=== PATIENT | female | born 1995 | race Two or more races ===

== ENCOUNTER 2017-09-21 18:06 | Emergency (ER) | payer MEDICAID, OTHER ==
--- NOTE | 2017-09-21 18:50 | EDPHY ---
H & P HPI/ROS: CHIEF COMPLAINT: Pain to left trapezius 40 hr ago HISTORY OF PRESENT ILLNESS: 22-year-old female sustained injury left shoulder while at work. She was attempting to do a lift with someone else. Unfortunately the client started tipping and she had quick get under her clients shoulder in order to prevent things from happening. As such she felt strain. It was until the morning some 6 hr later which was driving home that she started feeling quite uncomfortable. Once home she took 60 mg of ibuprofen. It has essentially been pretty bad ever since keeping her awake at night. She will attempt to try this fall sleep laying on her back. Overtime the pain is expanded from that of the left trapezius to going down the arm but not into anyone into a finger but the entire hand. P worse with movement and palpation of the left trapezius Q ache R originates in the left trapezius but goes down the arm S moderate to severe T 40 hr ago at work Right-handed REVIEW OF SYSTEMS: Constitutional - no fevers or chills Musculoskeletal - no joint or muscle pain. Integument - no rashes or wounds Neurological - no numbness, tingling, or paresthesias. Smoking Status: Current every day smoker Physical Exam: General Appearance: Alert, no distress. Afebrile. There is no torticollis but she does prefer to tip her head to the right Extremities: Tender overlying the left trapezius on the upper portion however there is no bony tenderness. Neurological: NV intact. Symmetrical reflexes with 1+ biceps 1+ triceps. No motor weakness, good wrist extension as well as triceps function Sensation intact Spurling test is negative for any signs of radiculopathy Skin: Skin is intact. Warm and dry, no rashes. no lymphangitis. . Constitutional: Initial Vital Signs Temperature (C) 36.9 C 09/21/17 18:11 Heart Rate 84 09/21/17 18:11 Respiratory Rate 18 09/21/17 18:11 Blood Pressure 117/81 H 09/21/17 18:11 O2 Sat (%) 95 09/21/17 18:11 O2 Delivery Mode Room Air Allergies/Adverse Reactions: No Known Allergies Allergy (Unverified 09/21/17 18:15) Home Medications: Medication Instructions Recorded CYCLOBENZAPRINE HCL [Flexeril] 5 mg PO TIDPRN PRN #12 tab 09/21/17 Medical Decision Making ED Course/Re-evaluation: She has been taking 60 mg of ibuprofen twice a day. Does not seem to be helping oral that much. I will have her increased to 3 times daily and add Tylenol extended-release. Furthermore home physical therapy program of heat, massage, ice. She is a no for light duty. She is follow up with her referred occupational health by her employer later this week Differential Diagnosis: The differential diagnosis includes but is not limited to: Sprain, Strain, Nerve injury, Contusion Departure - Departure Disposition: Home, Routine, Self-Care Clinical Impression: Muscle strain of left shoulder Qualifiers: Encounter type: initial encounter Qualified Code(s): S46.912A - Strain of unspecified muscle, fascia and tendon at shoulder and upper arm level, left arm , initial encounter Condition: Good Instructions: Muscle Strain (ED) Additional Instructions: Twice daily use of the protocol of: Heat, massage and stretching, ice A referral to Occupational Health through your employer Light duty left arm Tylenol and Advil works well together the combination: Tylenol 1300 mg and Advil 600 mg every 8 hours Stand Alone Forms: Work Limited Duty Prescriptions: CYCLOBENZAPRINE HCL [Flexeril] 5 mg PO TIDPRN PRN #12 tab PRN Reason: Muscle discomfort and spasm
[2017-09-21 19:16] VITALS: BP 110/72; PULSE 80; RESP 16; TEMP 98.1; O2SAT 97
== END 2017-09-21 19:30 | disposition home or self-care (01) ==
LOC: CED 18:06
DX: S46.912A Strain of unspecified muscle, fascia and tendon at shoulder and upper arm level, left arm, initial encounter (principal); F17.200 Nicotine dependence, unspecified, uncomplicated; X58.XXXA Exposure to other specified factors, initial encounter; Y92.009 Unspecified place in unspecified non-institutional (private) residence as the place of occurrence of the external cause